=== PATIENT | female | born 1955 | race Caucasian/White ===

== ENCOUNTER 2017-06-21 11:57 | Inpatient (IN) ==
[2017-06-21] MEDS ORDERED: PROMETHAZINE 25 MG/ML VIAL IV PRN (14:11)
[2017-06-21] MEDS ORDERED: fentaNYL 100 MCG/2 ML VIAL IV PRN (14:11)
[2017-06-21] MEDS ORDERED: diphenhydrAMINE 50 MG/ML VIAL IV PRN (14:11)
[2017-06-21] MEDS ORDERED: ATROPINE SULFATE 0.4 MG/ML VIAL IV PRN (14:11)
[2017-06-21] MEDS ORDERED: FLUMAZENIL 0.1 MG/ML ML IV PRN (14:11)
[2017-06-21] MEDS ORDERED: METOPROLOL TARTRATE 5 MG/5 ML VIAL IV PRN (14:11)
[2017-06-21] MEDS ORDERED: NALOXONE HCL 0.4 MG/ML VIAL IV PRN (14:11)
[2017-06-21] MEDS ORDERED: IPRATROPIUM/ALBUTEROL 3 ML AMPUL.NEB NEB PRN (14:11)
[2017-06-21] MEDS ORDERED: ePHEDrine 50 MG/ML AMPUL IV PRN (14:11)
[2017-06-21] MEDS ORDERED: ONDANSETRON 4 MG/2 ML VIAL IV PRN (14:11)
[2017-06-21] MEDS ORDERED: METHOCARBAMOL 1,000 MG/10 ML VIAL IV PRN (14:11)
[2017-06-21] MEDS ORDERED: LACTATED RINGERS 1,000 ML IV SCH (14:15)
[2017-06-21] MEDS ORDERED: DEXAMETHASONE 10 MG/ML VIAL IV ONE (14:20)
[2017-06-21] MEDS ORDERED: SUCCINYLCHOLINE 20 MG/ML ML IV ONE (14:20)
[2017-06-21] MEDS ORDERED: ONDANSETRON 4 MG/2 ML VIAL IV ONE (14:20)
[2017-06-21] MEDS ORDERED: fentaNYL 250 MCG/5 ML VIAL IV ONE (14:20)
[2017-06-21] MEDS ORDERED: ePHEDrine 50 MG/ML AMPUL IV ONE (14:20)
[2017-06-21] MEDS ORDERED: PROPOFOL 200 MG/20 ML VIAL IV ONE (14:20)
[2017-06-21] MEDS ORDERED: MIDAZOLAM 5 MG/5 ML VIAL IV ONE (14:20)
[2017-06-21] MEDS ORDERED: LIDOCAINE HCL/PF 100 MG/5 ML SYRINGE IV ONE (14:20)
--- NOTE | 2017-06-21 15:46 | Brief Operative Note ---
Date of procedure: 06/21/17 Pre-op diagnosis: Bilateral Epiglottic Mass Post-op diagnosis: same Procedure: Microscopic direct laryngoscopy with excisional biopsy of bilateral epiglottic masses Grafts/Implants: No Anesthesia: GETA Findings: 2 Supraglottic mass, both appeared to be mucoceles. Post-operative supraglottic edema Complications: none Surgeon: Navarro Gray Estimated blood loss (cc): 30 Specimens Removed/Pathology: other (Bilateral masses and culture) Condition: stable Disposition: ICU (Intubated the the icu for airway obs)
[2017-06-21] MEDS ORDERED: PROPOFOL 1,000 MG in PREMIX 1 BAG IV SCH (16:30)
--- NOTE | 2017-06-21 16:44 | Internal Medicine Consult Note ---
Medical - CN: HPI - Data of Consult Requesting Physician: Navarro Gray Primary Care Provider: Peterson Peacock Family Provider: Peterson Peaccok - Consult Narrative Reason for consult: vent management History of present illness: Ms. Washburn is a 62 year old F who underwent directlaryngoscopy with excision biopsy of bilateral epiglottic masses under general anesthesia. Postoperatively patient developed supraglottic edema and due to concerns of airway protection and compromise, patient was continued on mechanical ventilation. [facility] hospitalist service was consulted for management of mechanical ventilation until patient is safe to be extubated ENT. patient was subsequently transferred to ICU from postop recovery At the time of evaluation patient is Immediately postop. She is on mechanical ventilation. Initial setting FiO2 30%. PEEP 5 tidal volume 450.ICU sedation was started on fentanyl/propofol. Stable hemodynamics on arrival to the intensive care unit. no family members are present. Case was discussed with ENT specialist is Dr. Gray. Medical records were reviewed including past medical history and current medications/allergy list. patient carries a history of fibromyalgia/history of CVA in 1994, secondary to carotid artery dissection and immobilization Review of systems Could not be performed due to patient on mechanical ventilation CC: Navarro Gray Medical - CN: PMH Medical history: Eczema (Chronic) Depression (Chronic) Major depression, single episode (Chronic 11/08/11) Fibromyalgia (Chronic) Fibrocystic breast disease (Chronic) CVA (cerebrovascular accident) (Chronic) 1994 From chiropractic manipulation and carotid artery dissection and embization. Needed no surgery, but it took several months of rehabilitation for speech and physical disability, memory. She feels she made a full recovery except for complex memory loss. Surgical History Internal carotid artery dissection (Chronic) 1994 S/P fine needle aspiration (Chronic) Recorded 10/30/08 Has had multiple breast cyst aspirations Pertinent family history: Father , Complications resulted in Chronic obstructive pulmonary disease Uncles Malignant neoplasm of colon Several uncles Mother Diabetes mellitus Uncle Malignant neoplasm of prostate Social history: daily smoker Medical - CN: Meds Home Medications Medication Instructions Recorded Confirmed Type ketoconazole 2 % topical cream 1 applic TOPICAL QDAY g 11/26/14 06/16/17 History desoximetasone 0.25 % topical 1 applic TOPICAL BID PRN #60 g 12/03/14 06/16/17 Rx ointment zolpidem 5 mg tablet See Dose Instructions PO HS PRN 12/03/14 06/16/17 Rx #30 tab fluticasone 50 mcg/actuation nasal 100 mcg INTRANASAL BID #16 g 03/23/16 Rx spray,suspension albuterol sulfate HFA 90 2 puff INHALATION Q6H #18 g 05/10/17 06/16/17 Rx mcg/actuation aerosol inhaler budesonide-formoterol HFA 160 2 inh INHALATION Q12H #10.2 g 05/10/17 06/16/17 Rx mcg-4.5 mcg/actuation aerosol inhaler venlafaxine ER 75 mg 150 mg PO QDAY #60 cap 06/08/17 06/16/17 Rx capsule,extended release 24 hr Allergies Allergy/AdvReac Type Severity Reaction Status Date / Time venom-honey bee Allergy Severe Anaphylaxis Verified 06/21/17 16:30 [bee venom (honey bee)] aspirin AdvReac Mild Stomach Verified 06/21/17 16:30 irritation Medical - CN: Exam - Constitutional Vitals: Temp Pulse Resp BP Pulse Ox 98.3 F 102 H 23 H 138/81 99 06/21/17 12:00 06/21/17 12:00 06/21/17 16:25 06/21/17 12:00 06/21/17 16:25 General appearance: no acute distress Exam: on mechanical ventilation ET tube in place Symmetric breath sounds bilaterally S1 and S2 regular rhythm Head normocephalic atraumatic No lymphadenopathy Abdomen soft nocyanosisclubbing Skin clinical suspicion lesion Neurological not performed as patient on mechanical ventilation Medical - CN: A/P (1) On mechanically assisted ventilation Status: Acute Assessment and plan: * direct laryngoscopy with excision biopsy of bilateral epiglottic mass with associated supraglottic edema.managed by ENT. * mechanical ventilation for airway protection secondary to supraglottic edema. Continue mechanical ventilation per protocol. ICU sedation on propofol/ fentanyl. decision to extubate will be as per ENT recommendations * full code plan * ICU admission * Mechanical ventilation per protocol for airway protection * Blood gas/chest imaging/sedation holiday in morning. * Vent titration based on blood gases Critical care time 35 minutes
--- NOTE | 2017-06-21 16:51 | XRay Report ---
HISTORY: Reason for Exam:ETT Placement FINDINGS: The endotracheal tube is well-positioned, 2.7 cm above the [place]. There is nasogastric tube passing through the esophagus into the stomach. No pneumothorax or pleural effusion are present and there is no abnormal widening of the mediastinum. Patient has emphysema and pulmonary fibrosis. No acute infiltrate is present and there is no evidence of a mass or congestive heart failure. The heart size is normal. IMPRESSION: No complication following intubation COPD and pulmonary fibrosis ICU was called with results Interpreted and Authenticated by: Jessee Brink 06/21/17
--- NOTE | 2017-06-21 16:53 | XRay Report ---
HISTORY: Reason for Exam:NG placement FINDINGS: Nasogastric tube is positioned in the body the stomach with the tip pointing inferiorly towards left lower quadrant. The stomach is decompressed. There is a normal amount of air in the colon and small bowel. No free intra-abdominal air is present. The pelvis is outside of the field of view. No abnormal calcification is seen in the upper abdomen. IMPRESSION: Well-positioned nasogastric tube Interpreted and Authenticated by: Jessee Brink 06/21/17
[2017-06-21] MEDS ORDERED: fentaNYL 2,500 MCG in 0.9 % SODIUM CHLORIDE 200 ML IV SCH (17:00)
[2017-06-21] MEDS: PROPOFOL 1,000 MG in PREMIX 1 BAG IV SCH (20:16)
[2017-06-21] MEDS ORDERED: CHLORHEXIDINE GLUCONATE 1 ML ORAL.SOL SWABMOUTH SCH (21:00)
[2017-06-21] MEDS: CHLORHEXIDINE GLUCONATE 1 ML ORAL.SOL SWABMOUTH SCH (21:13)
[2017-06-22] MEDS: PROPOFOL 1,000 MG in PREMIX 1 BAG IV SCH ×3 (02:33→18:46)
[2017-06-22] MEDS ORDERED: RACEPINEPHRINE 0.5 ML AMPUL.NEB NEB ONE (07:13)
--- NOTE | 2017-06-22 08:12 | XRay Report ---
HISTORY: Reason for Exam:Mechanically Ventilated FINDINGS: The endotracheal tube and nasogastric tube remain well-positioned. There is no pneumothorax, pleural effusion or widening of the mediastinum. The heart size is normal. There is a vertically oriented band of scar or discoid atelectasis medially in the left lower lobe. Patient has pulmonary fibrosis in both lungs. There is no evidence of pneumonia or congestive heart failure. There has been no significant change since 06/21/17. IMPRESSION: COPD with pulmonary fibrosis Interpreted and Authenticated by: Jessee Brink 06/22/17
[2017-06-22] MEDS ORDERED: 0.9 % SODIUM CHLORIDE 1,000 ML IV SCH (08:15)
[2017-06-22] MEDS ORDERED: DEXAMETHASONE 10 MG/ML VIAL IV ONE ×2 (08:52→17:09)
[2017-06-22] MEDS: CHLORHEXIDINE GLUCONATE 1 ML ORAL.SOL SWABMOUTH SCH ×2 (09:16→21:30)
[2017-06-22 09:28] LABS: Mean Cell Volume 94.8 fL (80.0-100.0); Mean Corpuscular HGB Conc 33.7 g/dL (31.0-36.0); Platelet Count 247 K/mcL (140-440); RBC 4.39 M/mcL (4.00-5.20); Red Cell Distribution Width 13.8 % (11.5-14.5)
[2017-06-22 09:52] LABS: ALT/SGPT 15 U/l (0-40); Albumin 3.6 gm/dL (3.2-5.2); Albumin/Globulin Ratio 1.2 (1.0-2.3); Alkaline Phosphatase 71 U/L (39-117); Bilirubin,Direct < 0.2 mg/dL (0.0-0.3); Blood Urea Nitrogen 19 mg/dl (8-23); Gamma Glutamyl Transpeptidase 41 U/L (5-36)
[2017-06-22 10:05] LABS: Band Neutrophils % 1 % (0-10); Lymphocytes % 3 % (15-49); Monocytes % (Manual) 9 % (1-12); Platelet Estimate NORMAL (NORMAL); RBC Morphology NORMAL (NORMAL); Segmented Neutrophils % 87 % (38-78)
--- NOTE | 2017-06-22 13:46 | Internal Med Progress Note ---
Medical - PN: Subj Patient information: Note initiated : 06/22/17 at 1:44 pm Service Date, if different from initiated Date: [] Patient: Kesha Washburn a 62 y/o F admitted on 06/21/17 for Direct Suspension Microlaryngoscopy with Biopsy. Chief Complaint: [] Interval history: Ms. Washburn is a 62 year old F who underwent directlaryngoscopy with excision biopsy of bilateral epiglottic masses under general anesthesia. Postoperatively patient developed supraglottic edema and due to concerns of airway protection and compromise, patient was continued on mechanical ventilation. [facility] hospitalist service was consulted for management of mechanical ventilation until patient is safe to be extubated ENT. patient was subsequently transferred to ICU from postop recovery At the time of evaluation patient is Immediately postop. She is on mechanical ventilation. Initial setting FiO2 30%. PEEP 5 tidal volume 450.ICU sedation was started on fentanyl/propofol. Stable hemodynamics on arrival to the intensive care unit. no family members are present. Case was discussed with ENT specialist is Dr. Gray. Medical records were reviewed including past medical history and current medications/allergy list. patient carries a history of fibromyalgia/history of CVA in 1994, secondary to carotid artery dissection and immobilization. June 22-on mechanical ventilation per protocol. Patient failed cuff leak testthis morning and is continuing on mechanical ventilation. Continue steroid and additional 24 hours and ventilation for airway protection. ENT on board. good urine output. Stable hemodynamics. Continue ICU care andddaily chest imaging/blood gases. Chest imaging shows COPD with fibrosis, ET tube well positioned. ABG 7.37/51/71 on 30% FiO2 - Constitutional Vitals: Vital Signs Temp Pulse Resp BP Pulse Ox 98.3 F 91 H 16 102/69 96 06/22/17 12:01 06/22/17 12:25 06/22/17 13:32 06/22/17 12:01 06/22/17 13:32 Period Temp Pulse Resp BP Sys/Singh Pulse Ox Last 24 Hr 97.3 F-98.5 F 68-108 8-41 84-158/52-100 92-100 Intake and Output 06/21/17 06/22/17 06/22/17 21:59 05:59 13:59 Intake Total 1330 / 1330 127 / 127 142 / 142 Output Total 50 / 50 400 / 400 Balance 1280 / 1280 -273 / -273 142 / 142 Weight 136 lb 12.8 oz Intake & Output: Intake & Output 06/21/17 06/22/17 06/22/17 21:59 05:59 13:59 Intake Total 1330 / 1330 127 / 127 142 / 142 Output Total 50 / 50 400 / 400 Balance 1280 / 1280 -273 / -273 142 / 142 Weight 136 lb 12.8 oz Intake: IV 30 30 127 / 127 142 / 142 Diprivan 1,000 mg In Premix 1 56 / 56 Bag @ 5 MCG/KG/MIN 1.76 mls/hr IV .Q24H [facility] Rx#:[id number] IV - Manual Only 1300 / 1300 Output: Gastric Drainage 150 / 150 Oral 150 / 150 Urine Catheter Amount 250 / 250 Estimated Blood Loss 50 / 50 General appearance: no acute distress Exam: on mechanical ventilation opens eyes to verbal command No anxiety Good urine output Medical - PN: Obj Da - Labs CBC & Chem 7: 06/22/17 08:35 06/22/17 08:35 Labs: Abnormal Lab Results 06/22/17 06/22/17 08:35 08:35 WBC 13.8 H Seg Neutrophils % 87 H Lymphocytes % 3 L Glucose 114 H GGT 41 H Meds: Medications Chlorhexidine Gluconate (Peridex) 15 ml SWABMOUTH BID [facility] Last Admin: 06/22/17 09:16 Dose: 15 ml Fentanyl 2,500 mcg/ Sodium (Chloride) 250 mls @ 2.5 mls/hr IV Q24H [facility]; 25 MCG/ HR PRN Reason: Protocol Propofol 1,000 mg/ Premix 100 mls @ 1.76 mls/hr IV .Q24H [facility]; 5 MCG/KG/MIN PRN Reason: Protocol Last Admin: 06/22/17 11:36 Dose: 40 mcg/kg/min, 14.15 mls/hr Sodium Chloride (Sodium Chloride 0.9%) 1,000 mls @ 50 mls/hr IV .Q20H [facility] Stop: 06/24/17 20:14 Last Admin: 06/22/17 09:17 Dose: 50 mls/hr Medical - PN: A/P - Time Spent With Patient Total time spent is greater than 50% in coordination of care (as documented) at patient's floor/unit and/or counseling patient: (1) On mechanically assisted ventilation Status: Acute Assessment and plan: * mechanical ventilation for airway protection-continue vent titration based on blood gas. Continue sedation on propofol/fentanyl * direct laryngoscopy with excision biopsy of bilateral epiglottic mass with associated supraglottic edema.managed by ENT. on IV steroids to minimize subglottic edema/inflammation plan * Continue mechanical ventilation per protocol * Sedation holiday a.m. * Cuff leak test in a.m. * Likely extubation in 24 hours Current Visit: Yes Medical - PN: Qual - Stroke Symptom Onset Unknown: No - VTE Deep Vein Thrombosis/Pulmonary Embolism Present on Admission: No
[2017-06-22] MEDS ORDERED: fentaNYL 2,500 MCG in 0.9 % SODIUM CHLORIDE 200 ML IV SCH (17:00)
[2017-06-22] MEDS: DEXTROSE 5%-1/2NS 1,000 ML IV SCH (17:30)
[2017-06-23] MEDS: PROPOFOL 1,000 MG in PREMIX 1 BAG IV SCH (01:28)
[2017-06-23 05:53] LABS: Mean Cell Volume 96.1 fL (80.0-100.0); Mean Corpuscular HGB Conc 33.9 g/dL (31.0-36.0); Mean Corpuscular Hemoglobin 32.5 pg (26.0-34.0); Platelet Count 219 K/mcL (140-440); RBC 4.01 M/mcL (4.00-5.20); Red Cell Distribution Width 13.6 % (11.5-14.5)
[2017-06-23 06:19] LABS: ALT/SGPT 12 U/l (0-40); Albumin 3.1 gm/dL (3.2-5.2); Albumin/Globulin Ratio 1.1 (1.0-2.3); Alkaline Phosphatase 60 U/L (39-117); Bilirubin,Direct < 0.2 mg/dL (0.0-0.3); Blood Urea Nitrogen 21 mg/dl (8-23); Gamma Glutamyl Transpeptidase 34 U/L (5-36); Uric Acid 3.8 mg/dL (2.5-8.0)
[2017-06-23 06:32] LABS: Lymphocytes % 3 % (15-49); Monocytes % (Manual) 5 % (1-12); Platelet Estimate NORMAL (NORMAL); RBC Morphology NORMAL (NORMAL); Segmented Neutrophils % 89 % (38-78)
[2017-06-23] MEDS: DEXTROSE 5%-1/2NS 1,000 ML IV SCH (07:05)
--- NOTE | 2017-06-23 08:29 | XRay Report ---
HISTORY: Reason for Exam:Mechanically Ventilated FINDINGS: The endotracheal tube and nasogastric tube well-positioned. There is no pneumothorax, pleural effusion or widening of the mediastinum. A band of discoid atelectasis is seen medially in the left lower thorax. The heart size is normal. There has been no significant change since 06/22/17. IMPRESSION: Well-positioned support tubes Persistent mild discoid atelectasis in the left lower lobe Interpreted and Authenticated by: Jessee Brink 06/23/17
--- NOTE | 2017-06-23 09:28 | XRay Report ---
HISTORY: Reason for Exam:post extubation FINDINGS: The endotracheal tube and nasogastric tube have been removed. There is a residual band of discoid atelectasis medially in the left lower lobe. Mildly prominent increased interstitial lung markings are present bilaterally. The heart size is within normal limits. There is no pleural effusion. IMPRESSION: Mild generalized interstitial lung disease and stable mild left lower lobe atelectasis Interpreted and Authenticated by: Jessee Brink 06/23/17
--- NOTE | 2017-06-23 11:15 | Surgical Pathology Report ---
HISTOLOGY SPECIMEN MICROSCOPIC DIAGNOSIS EPIGLOTTIS, EXCISIONAL BIOPSY: -- BENIGN LYMPHOEPITHELIAL CYST. ([facility]:adarsh) CLINICAL HISTORY Epiglottic mass. GROSS DESCRIPTION Received in formalin labeled with the patient information, are two fofana-cantrell pieces of tissue. The first is 1.8 x 1.2 x 0.3 cm. Centrally there is a firmer fofana area that is 1 x 0.9 x 0.9 cm. The margin is inked black. Sectioning through the raised area reveals a cavity with soft white tissue. The second is 2.4 x 2 x 0.6 cm. The possible margin is inked black. Sectioning through this fragment shows a 1.7 cm cavity filled with cantrell soft tissue. Ladder Operator sections submitted in four cassettes: First fragment entirely submitted in A1-A2 with ends in A1; second fragment in A3-A4 with ends in A3 and tour sales representative sections in A4. ([facility]:sln) Electronically Signed by: Kiera Matias D.O.
[2017-06-23] MEDS ORDERED: HEPARIN 5,000 UNIT/ML VIAL SQ ONE (12:45)
--- NOTE | 2017-06-23 12:46 | Internal Med Progress Note ---
Medical - PN: Subj Patient information: Note initiated : 06/23/17 at 12:42 pm Service Date, if different from initiated Date: [] Patient: Kesha Washburn a 62 y/o F admitted on 06/21/17 for Direct Suspension Microlaryngoscopy with Biopsy. Chief Complaint: [] Interval history: Ms. Washburn is a 62 year old F who underwent directlaryngoscopy with excision biopsy of bilateral epiglottic masses under general anesthesia. Postoperatively patient developed supraglottic edema and due to concerns of airway protection and compromise, patient was continued on mechanical ventilation. [facility] hospitalist service was consulted for management of mechanical ventilation until patient is safe to be extubated ENT. patient was subsequently transferred to ICU from postop recovery At the time of evaluation patient is Immediately postop. She is on mechanical ventilation. Initial setting FiO2 30%. PEEP 5 tidal volume 450.ICU sedation was started on fentanyl/propofol. Stable hemodynamics on arrival to the intensive care unit. no family members are present. Case was discussed with ENT specialist is Dr. Gray. Medical records were reviewed including past medical history and current medications/allergy list. patient carries a history of fibromyalgia/history of CVA in 1994, secondary to carotid artery dissection and immobilization. June 22-on mechanical ventilation per protocol. Patient failed cuff leak testthis morning and is continuing on mechanical ventilation. Continue steroid and additional 24 hours and ventilation for airway protection. ENT on board. good urine output. Stable hemodynamics. Continue ICU care andddaily chest imaging/blood gases. Chest imaging shows COPD with fibrosis, ET tube well positioned. ABG 7.37/51/71 on 30% FiO2 June 23- patient passed cuff leak test with 400 cc leak. Aggressive suctioning performed. Extubation if parameters favorable. Patient subsequently extubated to high flow oxygen. No postextubation complications, continue monitoring in ICU. Speech therapy eval for aspiration risk. ENT on board. No overnight fever chills. DC IV fluids/Foleys catheter. May resume home medications in 24 hours. - Constitutional Vitals: Vital Signs Temp Pulse Resp BP Pulse Ox 98.9 F 101 H 25 H 133/59 90 06/23/17 12:01 06/23/17 12:40 06/23/17 12:40 06/23/17 12:32 06/23/17 12:40 Period Temp Pulse Resp BP Sys/Singh Pulse Ox Last 24 Hr 97.7 F-98.9 F 58-113 11-30 80-148/52-101 89-100 Intake and Output 06/22/17 06/23/17 06/23/17 21:59 05:59 13:59 Intake Total 503 / 503 210 / 210 64 / 64 Output Total 950 / 950 150 / 150 Balance -447 / -447 60 / 60 64 / 64 Weight 137 lb 8 oz Intake & Output: Intake & Output 06/22/17 06/23/17 06/23/17 21:59 05:59 13:59 Intake Total 503 / 503 210 / 210 64 / 64 Output Total 950 / 950 150 / 150 Balance -447 / -447 60 / 60 64 / 64 Weight 137 lb 8 oz Intake: IV 503 / 503 210 / 210 64 / 64 Sodium Chloride 0.9% 1,000 ml @ 403 / 403 50 mls/hr IV .Q20H [facility] Rx#: [id number] Diprivan 1,000 mg In Premix 1 100 / 100 112 / 112 24 / 24 Bag @ 5 MCG/KG/MIN 1.76 mls/hr IV .Q24H [facility] Rx#:[id number] fentaNYL 2,500 MCG In Sodium 98 / 98 40 / 40 Chloride 0.9% 200 ml @ 25 MCG/ HR 2.5 mls/hr IV Q24H [facility] Rx#: [id number] Output: Gastric Drainage 700 / 700 Oral 700 / 700 Urine Catheter Amount 250 / 250 150 / 150 General appearance: no acute distress Exam: on high flow oxygen Nonlabored breathing Slightly drowsy No distress Foleys draining clear urine telemetry no events Medical - PN: Obj Da - Labs CBC & Chem 7: 06/23/17 04:34 06/23/17 04:34 Labs: Abnormal Lab Results 06/23/17 06/23/17 06/22/17 04:34 04:34 08:35 WBC 13.5 H Seg Neutrophils % 89 H Lymphocytes % 3 L Reactive Lymphocytes 3 H Carbon Dioxide 31 H Glucose 118 H 114 H Calcium 8.3 L GGT 41 H Albumin 3.1 L 06/22/17 08:35 WBC 13.8 H Seg Neutrophils % 87 H Lymphocytes % 3 L Reactive Lymphocytes Carbon Dioxide Glucose Calcium GGT Albumin Meds: Medications Chlorhexidine Gluconate (Peridex) 15 ml SWABMOUTH BID [facility] Last Admin: 06/22/17 21:30 Dose: 15 ml Fentanyl 2,500 mcg/ Sodium (Chloride) 250 mls @ 2.5 mls/hr IV Q24H [facility]; 25 MCG/ HR PRN Reason: Protocol Last Titration: 06/23/17 08:50 Dose: 0 mcg/hr, 0 mls/hr Propofol 1,000 mg/ Premix 100 mls @ 1.76 mls/hr IV .Q24H [facility]; 5 MCG/KG/MIN PRN Reason: Protocol Last Titration: 06/23/17 07:35 Dose: 0 mcg/kg/min, 0 mls/hr Dextrose/Sodium Chloride (Dextrose 5%-1/2ns Iv Solution) 1,000 mls @ 75 mls/hr IV .[id number] [facility] Last Admin: 06/22/17 17:30 Dose: 75 mls/hr Medical - PN: A/P - Time Spent With Patient Total time spent is greater than 50% in coordination of care (as documented) at patient's floor/unit and/or counseling patient: (1) On mechanically assisted ventilation Status: Acute Assessment and plan: * Mechanical ventilation for airway protection-successfully extubated 4/12 AM. Continue high flow oxygen. DC fentanyl propofol.Therapy eval for aspiration risk evaluation. Advance diet per ENT recommendations. Monitor on telemetry for additional 12 hours. * direct laryngoscopy with excision biopsy of bilateral epiglottic mass with associated supraglottic edema. postop management as per ENT Managed by ENT. * leukocytosis secondary to IV steroids. * DVT prophylaxis-start heparin subcutaneous plan * extubated to high flow oxygen * DVT prophylaxis * transfer to telemetry Current Visit: Yes Medical - PN: Qual - Stroke Symptom Onset Unknown: No - VTE Deep Vein Thrombosis/Pulmonary Embolism Present on Admission: No
[2017-06-23] MEDS: CHLORHEXIDINE GLUCONATE 1 ML ORAL.SOL SWABMOUTH SCH ×2 (12:55→21:40)
[2017-06-23] MEDS ORDERED: LORazepam 2 MG/ML VIAL IV PRN (18:43)
[2017-06-23] MEDS: NICOTINE 21 MG PATCH TOPICAL SCH (19:39)
[2017-06-23] MEDS ORDERED: HEPARIN 5,000 UNIT/ML VIAL SQ SCH (21:00)
[2017-06-23] MEDS: HEPARIN 5,000 UNIT/ML VIAL SQ SCH (21:41)
[2017-06-24] MEDS ORDERED: ONDANSETRON 4 MG/2 ML VIAL IV PRN (01:07)
[2017-06-24] MEDS ORDERED: ONDANSETRON 4 MG/2 ML VIAL ONE (01:08)
[2017-06-24 06:15] LABS: Mean Cell Volume 95.2 fL (80.0-100.0); Mean Corpuscular HGB Conc 33.7 g/dL (31.0-36.0); Platelet Count 221 K/mcL (140-440); RBC 4.23 M/mcL (4.00-5.20); Red Cell Distribution Width 13.5 % (11.5-14.5)
[2017-06-24 06:40] LABS: ALT/SGPT 16 U/l (0-40); Albumin 3.4 gm/dL (3.2-5.2); Albumin/Globulin Ratio 1.1 (1.0-2.3); Alkaline Phosphatase 68 U/L (39-117); Bilirubin,Direct < 0.2 mg/dL (0.0-0.3); Blood Urea Nitrogen 16 mg/dl (8-23); Gamma Glutamyl Transpeptidase 34 U/L (5-36); Uric Acid 3.6 mg/dL (2.5-8.0)
[2017-06-24] MEDS ORDERED: POTASSIUM CHLORIDE 20 MEQ TABLET PO ONE (07:20)
[2017-06-24] MEDS ORDERED: POTASSIUM CHLORIDE 20 MEQ PACKET PO ONE (07:21)
[2017-06-24 07:24] LABS: Band Neutrophils % 2 % (0-10); Lymphocytes % 18 % (15-49); Monocytes % (Manual) 14 % (1-12); Platelet Estimate NORMAL (NORMAL); RBC Morphology NORMAL (NORMAL); Segmented Neutrophils % 63 % (38-78)
[2017-06-24] MEDS: CHLORHEXIDINE GLUCONATE 1 ML ORAL.SOL SWABMOUTH SCH (08:30)
[2017-06-24] MEDS: HEPARIN 5,000 UNIT/ML VIAL SQ SCH (08:30)
[2017-06-24] MEDS: NICOTINE 21 MG PATCH TOPICAL SCH (08:32)
--- NOTE | 2017-06-24 09:01 | Internal Med Progress Note ---
Medical - Auxillary Note - Subjective Patient Information: Note initiated : 06/24/17 at 8:59 am Service Date, if different from initiated Date: [] Patient: Kesha Washburn 62 y/o F admitted on 06/21/17 for Direct Suspension Microlaryngoscopy with Biopsy. Chief Complaint: [] Vital Signs Temp Pulse Resp BP Pulse Ox 98.2 F 92 H 16 118/70 96 06/24/17 07:21 06/24/17 03:23 06/24/17 07:21 06/24/17 07:21 06/24/17 07:21 Period Temp Pulse Resp BP Sys/Singh Pulse Ox Last 24 Hr 98.2 F-100.0 F 68-113 13-30 96-148/59-101 89-100 Intake and Output 06/23/17 06/24/17 06/24/17 21:59 05:59 13:59 Intake Total 460 / 460 480 / 480 120 / 120 Output Total 300 / 300 Balance 160 / 160 480 / 480 120 / 120 Weight 135 lb Medications Chlorhexidine Gluconate (Peridex) 15 ml SWABMOUTH BID [facility] Last Admin: 06/24/17 08:30 Dose: Not Given Heparin Sodium (Porcine) (Heparin) 5,000 unit SQ Q12 [facility] Last Admin: 06/24/17 08:30 Dose: 5,000 unit Nicotine (Nicoderm) 21 mg TOPICAL DAILY@1000 [facility] Last Admin: 06/24/17 08:32 Dose: 21 mg Ondansetron HCl (Zofran) 4 mg IV Q4-6HP PRN PRN Reason: Nausea And Vomiting Result Di[facility] 06/24/17 04:50 06/24/17 04:50 Abnormal Labs 06/24/17 06/24/17 06/23/17 04:50 04:50 04:34 WBC 13.6 H Seg Neutrophils % Lymphocytes % Monocytes % (Manual) 14 H Reactive Lymphocytes 3 H Potassium 3.1 L Carbon Dioxide 32 H 31 H Glucose 118 H Calcium 8.5 L 8.3 L Phosphorus 2.2 L GGT Albumin 3.1 L Triglycerides 190 H 06/23/17 06/22/17 06/22/17 04:34 08:35 08:35 WBC 13.5 H 13.8 H Seg Neutrophils % 89 H 87 H Lymphocytes % 3 L 3 L Monocytes % (Manual) Reactive Lymphocytes 3 H Potassium Carbon Dioxide Glucose 114 H Calcium Phosphorus GGT 41 H Albumin Triglycerides Ms. Washburn is a 62 year old F who underwent directlaryngoscopy with excision biopsy of bilateral epiglottic masses under general anesthesia. Postoperatively patient developed supraglottic edema and due to concerns of airway protection and compromise, patient was continued on mechanical ventilation. [facility] hospitalist service was consulted for management of mechanical ventilation until patient is safe to be extubated ENT. patient was subsequently transferred to ICU from postop recovery At the time of evaluation patient is Immediately postop. She is on mechanical ventilation. Initial setting FiO2 30%. PEEP 5 tidal volume 450.ICU sedation was started on fentanyl/propofol. Stable hemodynamics on arrival to the intensive care unit. no family members are present. Case was discussed with ENT specialist is Dr. Gray. Medical records were reviewed including past medical history and current medications/allergy list. patient carries a history of fibromyalgia/history of CVA in 1994, secondary to carotid artery dissection and immobilization. June 22-on mechanical ventilation per protocol. Patient failed cuff leak testthis morning and is continuing on mechanical ventilation. Continue steroid and additional 24 hours and ventilation for airway protection. ENT on board. good urine output. Stable hemodynamics. Continue ICU care andddaily chest imaging/blood gases. Chest imaging shows COPD with fibrosis, ET tube well positioned. ABG 7.37/51/71 on 30% FiO2 June 23- patient passed cuff leak test with 400 cc leak. Aggressive suctioning performed. Extubation if parameters favorable. Patient subsequently extubated to high flow oxygen. No postextubation complications, continue monitoring in ICU. Speech therapy eval for aspiration risk. ENT on board. No overnight fever chills. DC IV fluids/Foleys catheter. May resume home medications in 24 hours. - patient doing well postextubation. Tolerating liquid dietas per ST recommendations along with the least based therapy eval.. No further recommendations from hospitalist service. transfer to medical floor. Hospitalist service signing off. discharge planning as per ENT
--- NOTE | 2017-06-24 09:07 | XRay Report ---
HISTORY: Reason for Exam: Respiratory distress FINDINGS: Patient has mild interstitial fibrosis in both lungs. It may be mild discoid atelectasis left lower lobe. These findings have remained stable since 06/23/17. No new infiltrate is developed. There is no congestive heart failure or pleural effusion. The heart size is normal. IMPRESSION: Stable mild generalized interstitial lung disease which is probably pulmonary fibrosis. Superimposed inflammation cannot be excluded. Interpreted and Authenticated by: Jessee Brink 06/24/17
--- NOTE | 2017-06-24 14:17 | Discharge Summary ---
Providers - Providers Patient information: Note initiated : 06/24/17 at 2:14 pm Service Date, if different from initiated Date: [] Patient: Kesha Washburn 62 y/o F admitted on 06/21/17 for Direct Suspension Microlaryngoscopy with Biopsy. Chief Complaint: Dysphagia, dysphonia and dyspnea Date of admission: 06/21/17 Discharge date: 06/24/17 Attending physician: Navarro Gray Hospitalist, Dr Pepe. Primary care physician: Peterson Peacock Hospitalization Hospital course: She underwent an extensive excision of supraglottic masses to relieve her obstruction. She was admitted to the ICU for airways observation while intubated. She remained intubated due to edema through AM. She was extubated and her swallowing was evaluated. She tolerated her diet well and progressed quickly. She was discharge Tuesday with no concerns and will follow up next week. 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 I am unsure at this time why she developed these. Discharge diagnosis: Epiglottic cysts, Dysphagia, Dysphonia, Dyspnea, COPD Reason for admission: Post operative airway management Procedures: Microscopic Direct laryngoscopy with Excision of bilateral epiglottic cysts. Pertinent studies/significant findings: Daily chest x rays done, normal. Flexible scope of the larynx on Tuesday showed secretions on top of the ET cuff with a mildly edematous glottis that is patent. Complications: None Exam Temp Pulse Resp BP Pulse Ox 98.9 F 92 H 20 140/79 97 06/24/17 11:59 06/24/17 03:23 06/24/17 11:59 06/24/17 11:59 06/24/17 11:59 - General physical appearance well developed, well nourished - Eyes PERRL, normal ocular movement - ENT normal pinna, normal nares, normal mucosa - Head Head exam IM: Present: atraumatic, normocephalic - Neck no masses, trachea midline - Cardiovascular Cardiovascular exam IM: Present: normal rate and rhythm - Respiratory normal respiratory effort, clear to auscultation - Abdomen Abdomen: Present: soft, non tender - Integumentary Present: no rash - Neurologic Present: normal coordination, normal sensation - Musculoskeletal Present: normal gait, normal posture - Psychiatric Present: oriented to time, oriented to person, oriented to place, speech is normal Discharge Plan - Patient/Caregiver Discharge Instructions Activity: increase activity as tolerated Diet: Dysphagia Advanced - Follow up Plan Follow up with: Peterson Peacock MD [Primary Care Provider] - 07/01/17 2:30 pm Navarro Gray DO [Physician] - 06/28/17 8:15 am Disposition: Home, Self-Care Prognosis: Good Rehab Potential: Good Overall status at discharge: patient is progressing back to baseline Pending Studies Diet Dysphagia Mechanical Altered Diet L2 Start TueJun 24 0811 Chlorhexidine Gluconate (Peridex) 15 ml SWABMOUTH BID [facility] Last Admin: 06/24/17 08:30 Dose: Admin: 06/23/17 21:40 Dose: 15 ml Heparin Sodium (Porcine) (Heparin) 5,000 unit SQ Q12 [facility] Last Admin: 06/24/17 08:30 Dose: 5,000 unit Admin: 06/23/17 21:41 Dose: 5,000 unit Nicotine (Nicoderm) 21 mg TOPICAL DAILY@1000 [facility] Last Admin: 06/24/17 08:32 Dose: 21 mg Admin: 06/23/17 19:39 Dose: 21 mg Shift Summary 06/24/17 04:07 Shift Summary by Jaleel Aggarwal Pt up to chair and commode with SBA. Voided x2. No BM. Nicotine patch applied to right shoulder. Pt tolerating clears that are "hot or cold" per speech therapy. Pt failed swallow test yesterday and will be re-evaluated this AM. Pt had nausea and muscle tremors during night. Given Zofran x 1. No other medication. She also complained of significant back pain in her upper back near her left scapula. This pain was alveated by massage, repositioning, and ice packs but pt was uncomfortable and did not sleep. Pt plans to leave today. Dr. Gray will need to see pt before D/C. Bedside report to follow. Initialized on 06/24/17 04:07 - END OF NOTE
--- NOTE | 2017-06-28 14:47 | Operative Note ---
DATE OF OPERATION: 06/21/2017 PREOPERATIVE DIAGNOSES: 1. Bilateral epiglottic cysts. 2. Dysphonia. 3. Dysphagia. POSTOPERATIVE DIAGNOSES: 1. Bilateral epiglottic cysts. 2. Dysphonia. 3. Dysphagia. PROCEDURE: Microscopic direct laryngoscopy with excision of multiple epiglottic cysts. SURGEON: Navarro Gray DO. INFORMATION TECHNOLOGY SPECIALIST: None. ANESTHESIA: General. ANESTHESIOLOGIST: Thiago Lewis CRNA. COMPLICATIONS: None. ESTIMATED BLOOD LOSS: 20 mL. FINDINGS: The patient had significantly enlarged cysts coming from the lateral aspect of the epiglottis with also several other small cysts in the left vallecula. The cysts were inspected approximately 1 week ago in the emergency room and were significantly smaller, especially the one coming from the epiglottis on the left. The two cysts that were in the vallecula were not noted on original exam but were evacuated today. Once the cysts were removed, there was some worry for supraglottic edema. At that point, decision was made to leave the patient intubated overnight for airway observation. SPECIMENS: Bilateral epiglottic cysts. CONDITION: She tolerated the procedure well and was transferred to the ICU intubated and was stable. PROCEDURE: After operative informed consent was obtained, the patient was brought back to the operating room and laid supine on the operating table. General endotracheal anesthesia was administered using a GlideScope and a 6.0 endotracheal tube. Several preoperative pictures were taken with the GlideScope of the patient's supraglottic obstruction. Once that was done, a Dedo laryngoscope was inserted to the level of the superior epiglottis where the cysts were. The cysts were inspected showing bilateral epiglottic cysts that were soft in nature. She did have some in the left vallecula as well that were also noted. The cyst on the left epiglottis was approximately 1.5 cm to 2 cm with the one on the right side of the epiglottis being right around a centimeter in its greatest dimension. The left epiglottic cyst was addressed first. Utilizing grasping instruments, it was lateralized from the epiglottis and careful dissection was used, as well as sharp instrumentation to remove the cyst from the lateral aspect of the epiglottis. Pledgets with 1:1000 epinephrine were used for hemostasis in the area. Once the cyst was removed, it was sent for pathologic analysis in formalin. The right side was then addressed in the same fashion using some lateral retraction of the mass. It was able to be much more easily dissected off of the epiglottis than the left side was. At that point, the two cysts within the vallecula were marsupialized with upbiting scissors. There was a thick, yellow mucus that was drained from both of them with no signs of any infection or surrounding erythema or irritation. At that point, all pledgets that were placed over the areas of bleeding were removed, and there was good hemostasis. Some postoperative photos were taken and showed excellent reduction of the patient's significant obstruction. There was some evidence of some subglottic edema, especially on the base of the epiglottis bilaterally. The patient's endotracheal tube was then switched over using a tube exchanger from a 6.0 tube to a 7.5 tube. She was then kept sedated and transferred out of the operating room to the ICU. She will be monitored and discharged when she is stable. We will follow these masses in the office with some serial flexible endoscopy. We will also await the pathologic diagnosis of these. SP:melissa Job ID: [id number] Doc ID: [id number] Navarro Gray DO
== END 2017-06-24 14:45 | disposition home or self-care (01) | DRG 133 ==
LOC: SUR 11:57 → ICU 16:10
PROVIDERS: ADMIT Internal Medicine; ATTEND Otolaryngology Otolaryngology/Facial Plastic Surgery